=== PATIENT | female | born 1935 | race Caucasian/White ===

== ENCOUNTER 2022-09-28 22:40 | Emergency (ER) | payer BC, MEDICARE ==
[2022-09-28 22:51] VITALS: TEMP 97.4
--- NOTE | 2022-09-28 23:15 | ED ---
Fall HPI - General Chief Complaint: Fall Stated Complaint: Fall, Head Injury Time Seen by Provider: 09/28/22 23:03 Source: patient, family Mode of arrival: wheelchair - History of Present Illness Initial Comments: This patient is an 87-year-old woman who presents to have evaluation after having a fall tonight. Patient reports that she was sitting on the side of a self. Someone had given her Avesta wearing she started feeling very warm and her head felt funny. The patient then was noted to pass out, falling and here for head. The patient was briefly unconscious, woke and states that she is feeling well now. She states there is just a little bit of tenderness to the ri ght side of her forehead where she hit. She is denying any other complaints now. A nurse who was present when the fall occurred recommended to her that she go to the emergency department to be seen. MD Complaint: fall Onset/Timin -: hour(s) Fall From: chair When Fall Occurred: just prior to arrival Fall Witnessed: yes, by family Place Fall Occurred: other Loss of Consciousness: second(s) Prolonged Down Time?: no Symptoms Prior to Fall: lightheadedness Location: head Severity: mild Associated Symptoms: denies - Related Data Allergies Allergy/AdvReac Type Severity Reaction Status Date / Time Latex, Natural Rubber Allergy Rash/Hives Verified 09/28/22 22:51 Review of Systems ROS Statement: Those systems with pertinent positive or pertinent negative responses have been documented in the HPI. ROS Other: All systems not noted in ROS Statement are negative. Constitutional: Denies: fever, chills Eyes: Denies: vision change Respiratory: Denies: cough, dyspnea Cardiovascular: Denies: chest pain, palpitations, edema Gastrointestinal: Denies: abdominal pain, nausea, vomiting Genitourinary: Denies: dysuria, hematuria Musculoskeletal: Denies: back pain Skin: Denies: rash Neurological: Reports: as per HPI, headache. Denies: weakness, numbness, confusion General Exam Limitations: no limitations General appearance: alert, in no apparent distress Head exam: Present: normocephalic, other (There is very minimal swelling to right forehead. Only minimal localized tenderness. No palpable deformity.) Eye exam: Present: normal appearance, PERRL, EOMI. Absent: scleral icterus, conjunctival injection, nystagmus, periorbital swelling, periorbital tenderness ENT exam: Present: normal oropharynx Neck exam: Present: normal inspection, full ROM. Absent: tenderness, meningismus Respiratory exam: Present: normal lung sounds bilaterally. Absent: respiratory distress, wheezes, rales, rhonchi, stridor Cardiovascular Exam: Present: regular rate, normal rhythm, normal heart sounds. Absent: systolic murmur, diastolic murmur, rubs, gallop GI/Abdominal exam: Present: soft. Absent: distended, tenderness, guarding, rebound Extremities exam: Present: normal inspection, normal capillary refill. Absent: pedal edema, calf tenderness Back exam: Present: normal inspection. Absent: CVA tenderness (R), CVA tenderness (L) Neurological exam: Present: alert, oriented X3, CN II-XII intact, normal gait. Absent: motor sensory deficit Skin exam: Present: warm, dry, intact, normal color. Absent: rash Course Vital Signs 09/28/22 09/29/22 22:46 00:49 Temperature 97.4 F L Pulse Rate 62 71 Respiratory 18 15 Rate Blood Pressure 115/57 129/74 O2 Sat by Pulse 99 99 Oximetry Medical Decision Making - Medical Decision Making The patient had chest x-ray which I interpreted as showing no infiltrate, acute bony trauma, or cardiomegaly. The patient had computed tomography scan of the head. I interpreted this as showing no acute bony injury. No intracranial hemorrhage. This patient is an 87-year-old woman who presents to have evaluation for syncopal episode which was followed by low mechanism of injury head injury. The patient's workup here not revealing trauma. She is back at her baseline. She was not having symptoms concerning for cardiac etiology. I did discuss with the patient having admission for further telemetry monitoring and cardiology evaluation, but at this point the patient is back at her baseline and wants to go home, she declines admission Was pt. sent in by a medical professional or institution? @ -No Did you speak to anyone other than the patient for history? @ -[Family Did you review nursing and triage notes? @ -[agree Were old charts reviewed? @ -[No Differential Diagnosis? @ -[Differential Syncope: Valvular disease, hypertrophic cardiomyopathy, pulmonary embolism, tamponade, tachycardia, bradycardia, [place], hypovolemia, hemorrhage, dissection, anemia, intracranial hemorrhage, seizure, hypoglycemia, carbon monoxide poisoning, this is not meant to be an all-inclusive list. EKG interpreted by me (3pts min.)? @ -See chart X-rays interpreted by me (1pt min.)? @ -[See chart CT interpreted by me (1pt min.)? @ -[See chart U/S interpreted by me (1pt. min.)? @ -[none] What testing was considered but not performed? (CT, X-rays, U/S, labs)? Why? @ [None What meds were considered but not given? Why? @ -[none] Did you discuss the management of the patient with other professionals? @ -No Did you reconcile home meds? @ -[none] Was smoking cessation discussed for >3mins.? @ -[none] Was critical care preformed (if so, how long)? @ -[none] Were there social determinants of health that impacted care today? How? (Homelessness, low income, unemployed, alcoholism, drug addiction, transportation, low edu. Level, literacy, decrease access to med. care, snf, rehab)? @ -[No Was there de-escalation of care discussed even if they declined? (Discuss DNR or withdrawal of care, Hospice)? @ -[No What co-morbidities impacted this encounter? (DM, HTN, Smoking, COPD, CAD, Cancer, CVA, Hep., AIDS, mental health diagnosis, sleep apnea, morbid obesity)? @ -[None Was patient admitted / discharged? @ -[Discharged Undiagnosed new problem with uncertain prognosis? @ -[none] Drug Therapy requiring intensive monitoring for toxicity (Heparin, Nitro, Insulin, Cardizem)? @ -[none] Were any procedures done? @ -[none] Diagnosis/symptom? @ -[Syncope Head injury Acute, or Chronic, or Acute on Chronic? @ -[Acute Uncomplicated (without systemic symptoms) or Complicated (systemic symptoms)? @ -[Uncomplicated Side effects of treatment? @ -[none] Exacerbation, Progression, or Severe Exacerbation] @ -[no] Poses a threat to life or bodily function? @ -[no] - Lab Data Result diagrams: 09/28/22 23:46 09/28/22 23:46 Lab Results 09/28/22 09/28/22 09/28/22 Range/Units 23:46 23:46 23:46 WBC 7.6 (3.8-10.6) k/uL RBC 3.78 L (3.80-5.40) m/uL Hgb 12.0 (11.4-16.0) gm/dL Hct 35.0 (34.0-46.0) % MCV 92.3 (80.0-100.0) fL MCH 31.7 (25.0-35.0) pg MCHC 34.4 (31.0-37.0) g/dL RDW 12.4 (11.5-15.5) % Plt Count 155 (150-450) k/uL MPV 7.4 Neutrophils % 78 % Lymphocytes % 12 % Monocytes % 6 % Eosinophils % 1 % Basophils % 0 % Neutrophils # 6.0 (1.3-7.7) k/uL Lymphocytes # 0.9 L (1.0-4.8) k/uL Monocytes # 0.5 (0-1.0) k/uL Eosinophils # 0.1 (0-0.7) k/uL Basophils # 0.0 (0-0.2) k/uL Sodium 134 L (137-145) mmol/L Potassium 4.3 (3.5-5.1) mmol/L Chloride 103 (98-107) mmol/L Carbon Dioxide 25 (22-30) mmol/L Anion Gap 6 mmol/L BUN 19 H (7-17) mg/dL Creatinine 0.89 (0.52-1.04) mg/dL Est GFR (CKD-EPI)AfAm 68 (>60 ml/min/1.73 sqM) Est GFR (CKD-EPI)NonAf 59 (>60 ml/min/1.73 sqM) Glucose 113 H (74-99) mg/dL Calcium 8.7 (8.4-10.2) mg/dL Total Bilirubin 0.2 (0.2-1.3) mg/dL AST 31 (14-36) U/L ALT 30 (4-34) U/L Alkaline Phosphatase 110 (38-126) U/L Troponin I <0.012 (0.000-0.034) ng/mL Total Protein 6.5 (6.3-8.2) g/dL Albumin 3.9 (3.5-5.0) g/dL Serum Alcohol <10 mg/dL - EKG Data -: EKG Interpreted by Me EKG shows normal: sinus rhythm, axis (Normal), intervals (Normal), QRS complexes (Possible mild right ventricular conduction delay.), ST-T waves (Normal) Rate: bradycardia (Rate 58 bpm) Disposition Clinical Impression: Syncope, Fall Disposition: HOME SELF-CARE Condition: Good Instructions (If sedation given, give patient instructions): Syncope (ED) Is patient prescribed a controlled substance at d/c from ED?: No Referrals: Nonstaff,Physician [Primary Care Provider] - 1-2 days
--- NOTE | 2022-09-28 23:33 | CT ---
EXAMINATION TYPE: CT brain wo con DATE OF EXAM: 09/28/2022 COMPARISON: None HISTORY: fall, head injury, LOC, vomiting CT DLP: 1090.4 mGycm Automated exposure control for dose reduction was used. Images obtained of the brain with no contrast. There is some cerebral cortical atrophy. There is no mass effect or midline shift. No sign of intracr anial hemorrhage. Calvarium is intact. The skull base is intact. There is normal aeration of the left mastoid sinus. There is some mucosal t hickening in the lateral aspect right mastoid sinus. IMPRESSION: No acute intracranial abnormality. Mild atrophy. Mild right-sided mastoiditis.
--- NOTE | 2022-09-28 23:35 | XR ---
EXAMINATION TYPE: XR chest 1V DATE OF EXAM: 09/28/2022 COMPARISON: NONE HISTORY: Fall. Pain TECHNIQUE: Single view FINDINGS: Heart and mediastinum are normal. Lungs are clear. Diaphragm is normal. Bony thorax is inta ct. The pulmonary vascularity is normal. Thoracic aorta shows mild atheromatous changes. There is art hritic changes in the shoulder joints with subacromial joint space narrowing. IMPRESSION: No active cardiopulmonary disease.
[2022-09-29 00:02] LABS: Basophils % (A) 0 %; Eosinophils # (A) 0.1 k/uL (0-0.7); Eosinophils % (A) 1 %; Lymphocytes # (A) 0.9 k/uL (1.0-4.8); Lymphocytes % (A) 12 %; MCH 31.7 pg (25.0-35.0); MCHC 34.4 g/dL (31.0-37.0); MCV 92.3 fL (80.0-100.0); Mean Platelet Volume 7.4; Monocytes # (A) 0.5 k/uL (0-1.0); Monocytes % (A) 6 %; Neutrophils % (A) 78 %; Platelet Count 155 k/uL (150-450); RBC 3.78 m/uL (3.80-5.40); RDW 12.4 % (11.5-15.5); WBC 7.6 k/uL (3.8-10.6)
[2022-09-29 00:14] LABS: ALT 30 U/L (4-34); AST 31 U/L (14-36); African American GFR (CKD) 68 (>60 ml/min/1.73 sqM); Albumin 3.9 g/dL (3.5-5.0); Alcohol <10 mg/dL; Alkaline Phosphatase 110 U/L (38-126); Anion Gap 6 mmol/L; Blood Urea Nitrogen 19 mg/dL (7-17); Calcium 8.7 mg/dL (8.4-10.2); Carbon Dioxide 25 mmol/L (22-30); Chloride 103 mmol/L (98-107); Glucose 113 mg/dL (74-99); Non-African American GFR(CKD) 59 (>60 ml/min/1.73 sqM); Potassium 4.3 mmol/L (3.5-5.1); Sodium 134 mmol/L (137-145); Total Bilirubin 0.2 mg/dL (0.2-1.3); Total Protein 6.5 g/dL (6.3-8.2)
[2022-09-29 00:50] VITALS: BP 129/74; PULSE 71; RESP 15
== END 2022-09-29 00:52 | disposition home or self-care (01) ==
LOC: EC 22:40
DX: R55 Syncope and collapse (principal); Z91.040 Latex allergy status; W07.XXXA Fall from chair, initial encounter; Y92.009 Unspecified place in unspecified non-institutional (private) residence as the place of occurrence of the external cause
CPT/HCPCS: 36415; 93005; 80053; 84484; 85025; 71045; 70450; 99284; G0480; 80320